=== PATIENT | male | born 1975 | race African-American/Black ===

== ENCOUNTER 2016-09-17 13:09 | Emergency (ER) | payer OTHER ==
[2016-09-17 13:17] VITALS: BP 135/88; PULSE 73; TEMP 98.1; BMI 24.3
[2016-09-17] MEDS ORDERED: IBUPROFEN 600 MG TABLET (FP) PO ONE ×2 (13:24→13:29)
[2016-09-17] MEDS ORDERED: CYCLOBENZAPRINE HCL 10 MG TABLET (FP) PO ONE (13:24)
--- NOTE | 2016-09-17 13:24 | PDOC ---
History of Present Illness - General Chief Complaint: Pain, Acute Stated Complaint: NECK PAIN Time Seen by Provider: 09/17/16 13:12 History Source: Patient Exam Limitations: No Limitations - History of Present Illness Initial Comments: 09/17/16 13:40 This patient is a healthy 41-year-old male who presents via EMS due to neck pain. The patient states he was at work today, turned towards the right felt a snap in his neck. This occurred at approximately 7:30 AM. He returned to work, unloading a truck. He did describes his initial pain as a twinge, "it wasn't being close. He denies weakness or numbness in the upper or lower extremities. He continued to work up until 10:30 AM when he noticed that his pain progressively worsened. He describes the pain as located in the right lateral neck and into the trapezius, states pain is worse with movement He has not taken any pain medications Pain is 5/10 but not when it is palpated PMH: denies PSH: denies Meds: denies ALL: NKDA Social: denies alcohol, drug or cigarette use No PMD in [place] He works here for 9 months and then [place] to [place] GENERAL/CONSTITUTIONAL: No: fever, chills, weakness, loss of appetite. HEAD, EYES, EARS, NOSE AND THROAT: No: change in vision, ear pain, discharge, sore throat, throat swelling. CARDIOVASCULAR: No: chest pain, lightheadedness, palpitations, syncope RESPIRATORY: No: cough, shortness of breath, wheezing, hemoptysis, stridor. GASTROINTESTINAL: No: nausea, vomiting, diarrhea, abdominal cramping, rectal bleeding, constipation. GENITOURINARY: No: dysuria, hematuria, frequency, urgency, flank pain. MUSCULOSKELETAL: No: back pain, neck pain, joint pain, muscle swelling or pain SKIN AND BREASTS: No: lesions, pallor, rash or easy bruising. NEUROLOGIC: No: headache, vertigo, paresthesias, weakness ENDOCRINE: No: unexplained weight gain or loss HEMATOLOGIC/LYMPHATIC: No: anemia, easy bleeding, swelling nodes. GENERAL: The patient is in no acute distress. brought into the ER in a cervical collar HEAD: Normal with no signs of trauma. EYES: PERRLA, EOMI, sclera anicteric, conjunctiva clear. ENT: Ears normal, nares patent, oropharynx clear without exudates. Moist mucous membranes. NECK: No midline cervical spine tenderness to palpation, right nech and trapezius tenderness to palpation, pt makes small movements with his neck and this is not painful LUNGS: Breath sounds equal, clear to auscultation bilaterally. No wheezes, and no crackles. HEART:Regular rate and rhythm, normal S1 and S2 without murmur, rub or gallop. ABDOMEN: Soft, nontender, normoactive bowel sounds. No guarding, no rebound. No masses palpable. EXTREMITIES: Normal range of motion, no edema. NEUROLOGICAL: Cranial nerves II through XII grossly intact. Normal speech. No focal neurological deficits. motor strength in extremities 5/5 MUSCULOSKELETAL: Back non-tender to palpation, no CVA tenderness SKIN: Warm, Dry, normal turgor, no rashes or lesions noted. Past History - Past Medical History Allergies/Adverse Reactions: Allergies Allergy/AdvReac Type Severity Reaction Status Date / Time No Known Allergies Allergy Verified 09/17/16 13:11 Home Medications: Ambulatory Orders Ibuprofen [Motrin -] 600 mg PO TID PRN #21 tablet 09/17/16 Methocarbamol [Robaxin -] 500 mg PO TID PRN #21 tablet 09/17/16 Other medical history: DENIES - Psycho/Social/Smoking Cessation Hx Anxiety: No Suicidal Ideation: No Smoking History: Current some day smoker Have you smoked in the past 12 months: Yes Number of Cigarettes Smoked Daily: 4 Information on smoking cessation initiated: Yes 'Breaking Loose' booklet given: 09/17/16 Hx Alcohol Use: (occasional/rare) *Physical Exam - Vital Signs Last Vital Signs Temp Pulse Resp BP Pulse Ox 98.1 F 73 18 135/88 100 09/17/16 13:10 09/17/16 13:10 09/17/16 13:10 09/17/16 13:10 09/17/16 13:10 Medical Decision Making - Medical Decision Making 09/17/16 13:44 Pt presents to the ER with neck pain Likely neck strain, torticollis, much less likely facet disclocation Will do: CT cervical spine Motrin/Flexeril Anticipate discharge 09/17/16 14:37 09/17/16 14:57 CT: There is a possible small central C4-C5 disc herniation. No canal stenosis. My straightening of the cervical lordosis which may be positional or related to muscular spasm. Patient given copy of his CT. Patient should follow-up with his primary care physician and or so for MRI *DC/Admit/Observation/Transfer Diagnosis at time of Disposition: Neck muscle strain Qualifiers: Encounter type: initial encounter Qualified Code(s): S16.1XXA - Strain of muscle, fascia and tendon at neck level, initial encounter - Discharge Dispostion Disposition: HOME Condition at time of disposition: Stable Admit: No - Prescriptions Prescriptions: Ibuprofen [Motrin -] 600 mg PO TID PRN #21 tablet PRN Reason: Pain Methocarbamol [Robaxin -] 500 mg PO TID PRN #21 tablet PRN Reason: Pain - Patient Instructions Printed Discharge Instructions: DI for Neck Pain Additional Instructions: Thank you for coming to the ER today Please review your results Take medications as prescribed Return to the ER for any other concerns or complaints - Post Discharge Activity Work/School Note: Back to Work
[2016-09-17] MEDS ORDERED: CYCLOBENZAPRINE HCL 10 MG TABLET (FP) ONE (13:30)
== END 2016-09-17 15:05 | disposition home or self-care (01) ==
LOC: FER 13:09
DX: S16.1XXA Strain of muscle, fascia and tendon at neck level, initial encounter (principal); X58.XXXA Exposure to other specified factors, initial encounter; Y93.89 Activity, other specified; Y92.9 Unspecified place or not applicable; Y99.0 Civilian activity done for income or pay
CPT/HCPCS: 72125-TC; 99284-25